=== PATIENT | female | born 1940 | race Native Hawaiian/Other Pacific Islander ===

== ENCOUNTER 2017-01-06 16:56 | Inpatient (IN) | payer OTHER ==
[~2017-01-06] VITALS: Ht 165.1 cm; Wt 120.7 kg
[2017-01-06 17:55] LABS: PLATELET COUNT 181 K/uL (152-353)
[2017-01-06 18:18] VITALS: BP 175/58; TEMP 98.4; Ht 165.1 cm; Wt 120.7 kg
[2017-01-06 18:25] LABS: POTASSIUM 3.9 mmol/L (3.6-5.2)
[2017-01-06] MEDS ORDERED: FURO40TA93 PO (18:42)
[2017-01-06] MEDS ORDERED: LISI5TAB10 PO (18:43)
[2017-01-06] MEDS ORDERED: LIPITOR10 MG PO (18:44)
[2017-01-06] MEDS ORDERED: METO25TA4 OR (18:46)
[2017-01-06 20:00] VITALS: BP 155/73; TEMP 97.8
[2017-01-07] VITALS: BP 127/55; TEMP 98
[2017-01-07 04:00] VITALS: BP 152/64; TEMP 97.9
[2017-01-07 04:20] LABS: PLATELET COUNT 143 K/uL (152-353)
[2017-01-07 04:51] LABS: POTASSIUM 4.2 mmol/L (3.6-5.2)
[2017-01-07 08:00] VITALS: BP 145/62; TEMP 97.8
[2017-01-07 12:00] VITALS: BP 125/56; TEMP 98
[2017-01-07 16:00] VITALS: BP 141/71; TEMP 97.8
[2017-01-07 20:28] VITALS: BP 148/58; TEMP 98.2
[2017-01-08] VITALS: BP 142/67; TEMP 98
[2017-01-08 04:00] VITALS: BP 118/51; TEMP 97.7
[2017-01-08 05:36] LABS: POTASSIUM 3.5 mmol/L (3.6-5.2)
[2017-01-08 06:03] LABS: PLATELET COUNT 139 K/uL (152-353)
[2017-01-08 08:00] VITALS: BP 147/64; TEMP 98.1
== END 2017-01-08 11:52 | disposition home or self-care (01) | DRG 603 ==
LOC: MED/SURG 16:56
PROVIDERS: ADMIT Family Medicine
DX: L03.116 Cellulitis of left lower limb (principal); L03.115 Cellulitis of right lower limb; E66.01 Morbid (severe) obesity due to excess calories; I12.9 Hypertensive chronic kidney disease with stage 1 through stage 4 chronic kidney disease, or unspecified chronic kidney disease; N18.3 Chronic kidney disease, stage 3 (moderate); R60.0 Localized edema; I89.0 Lymphedema, not elsewhere classified
CPT/HCPCS: 36415; 80053; 81000; 83735; 85027; 87070; 87077; 87186; 87205; J1940

== ENCOUNTER 2018-11-30 15:53 | Outpatient (CLI) | payer OTHER ==
[~2018-11-30 15:53] MED LIST: FURO40TA93 PO; LIPITOR10 MG PO; LISI5TAB10 PO; METO25TA4 OR
[2018-11-30 16:39] LABS: PLATELET COUNT 163 K/uL (152-353)
== END 2018-11-30 21:17 | disposition home or self-care (01) ==
LOC: LABW 15:53
PROVIDERS: Physician Assistant
DX: I21.3 ST elevation (STEMI) myocardial infarction of unspecified site (principal); E66.01 Morbid (severe) obesity due to excess calories; I77.89 Other specified disorders of arteries and arterioles; I10 Essential (primary) hypertension
CPT/HCPCS: 36415; 80053; 84443; 85027

== ENCOUNTER 2019-02-17 11:54 | Outpatient (CLI) | payer OTHER | END 2019-02-17 12:00 | disposition short-term general hospital (02) | LOC: AMB 11:54 | DX: M79.662 Pain in left lower leg (principal); R11.2 Nausea with vomiting, unspecified | CPT/HCPCS: A0425; A0427 ==

== ENCOUNTER 2019-02-17 12:05 | Emergency (ER) | payer OTHER ==
[~2019-02-17] VITALS: Ht 166.4 cm; Wt 113.4 kg
[2019-02-17 12:48] LABS: POTASSIUM 3.8 mmol/L (3.6-5.2)
[2019-02-17 13:09] LABS: PLATELET COUNT 141 K/uL (152-353)
[2019-02-17 15:05] VITALS: BP 143/65; TEMP 98.6
== END 2019-02-17 15:05 | disposition home or self-care (01) ==
LOC: ED 12:10
PROVIDERS: Emergency Medicine
DX: M79.18 Myalgia, other site (principal); M79.605 Pain in left leg
CPT/HCPCS: 80053; 85027; 85610; 85730; 96374; 96375; 99284; J1885; J2405

== ENCOUNTER 2019-02-25 09:31 | Outpatient (CLI) | payer OTHER | END 2019-02-25 22:16 | disposition home or self-care (01) | LOC: US 09:31 | DX: M79.89 Other specified soft tissue disorders (principal) ==

== ENCOUNTER 2019-03-04 11:40 | Emergency (ER) | payer OTHER ==
[~2019-03-04] VITALS: Ht 166.4 cm; Wt 113.4 kg
[2019-03-04 11:51] VITALS: TEMP 97.3
[2019-03-04 12:50] LABS: POTASSIUM 4.3 mmol/L (3.6-5.2)
[2019-03-04 12:58] LABS: PLATELET COUNT 359 K/uL (152-353)
[2019-03-04 17:06] VITALS: BP 141/65
== END 2019-03-04 17:44 | disposition short-term general hospital (02) ==
LOC: ED 11:40
PROVIDERS: Family Medicine
DX: I73.89 Other specified peripheral vascular diseases (principal); M79.662 Pain in left lower leg; M79.661 Pain in right lower leg; N28.9 Disorder of kidney and ureter, unspecified
CPT/HCPCS: 36415; 80053; 81000; 85027; 85610; 85730; 99284

== ENCOUNTER 2019-03-04 17:47 | Outpatient (CLI) | payer OTHER | END 2019-03-04 19:07 | disposition short-term general hospital (02) | LOC: AMB 17:47 | DX: M79.662 Pain in left lower leg (principal); R22.42 Localized swelling, mass and lump, left lower limb; E66.8 Other obesity | CPT/HCPCS: A0425; A0429 ==

== ENCOUNTER 2019-10-04 19:25 | Inpatient (IN) | payer OTHER ==
[~2019-10-04] VITALS: Ht 165.1 cm; Wt 112.3 kg
[2019-10-04 19:33] VITALS: BP 128/62; TEMP 98.7
[2019-10-04 20:13] LABS: PLATELET COUNT 90 K/uL (152-353)
[2019-10-04 20:19] LABS: POTASSIUM 4.7 mmol/L (3.6-5.2)
[2019-10-04 20:34] LABS: PARTIAL THROMBOPLASTIN TIME 27.9 SECONDS (24.5-33.6)
[2019-10-04 21:35] VITALS: BP 126/57
[2019-10-04 23:57] VITALS: BP 128/67; BP 145/68; TEMP 97.6; TEMP 98.9
[2019-10-05 02:27] VITALS: BP 145/68; TEMP 98.7; Ht 165.1 cm; Wt 112.3 kg
[2019-10-05 07:00] LABS: PLATELET COUNT 90 K/uL (152-353)
[2019-10-05 07:23] LABS: POTASSIUM 4.2 mmol/L (3.6-5.2)
[2019-10-05 08:00] VITALS: BP 140/50; TEMP 98.6
[2019-10-05] MEDS ORDERED: GABA100C2 PO (10:46)
[2019-10-05] MEDS ORDERED: NEURONTIN 100M100 MG PO (10:48)
[2019-10-05] MEDS ORDERED: XARELTO20 MG PO (10:50)
[2019-10-05] MEDS ORDERED: QMIIZ ODT15 MG PO (10:50)
[2019-10-05] MEDS ORDERED: POT CHLORIDE10 MEQ PO (10:52)
[2019-10-05 12:00] VITALS: BP 107/46; TEMP 99
[2019-10-05 16:00] VITALS: BP 122/35; TEMP 97.9
[2019-10-05 20:00] VITALS: BP 126/60; TEMP 98.1
[2019-10-05 23:52] VITALS: BP 148/56; TEMP 99.1
[2019-10-06 04:33] VITALS: BP 134/47; TEMP 98.1
[2019-10-06 05:11] LABS: PLATELET COUNT 96 K/uL (152-353)
[2019-10-06 05:15] LABS: POTASSIUM 4.3 mmol/L (3.6-5.2)
[2019-10-06 08:00] VITALS: BP 120/51; TEMP 97.8
[2019-10-06 12:00] VITALS: BP 108/71; TEMP 97.9
[2019-10-06 20:55] VITALS: BP 114/87; TEMP 98
[2019-10-07 00:02] VITALS: BP 107/62; TEMP 98.3
[2019-10-07 04:17] VITALS: BP 142/80; TEMP 99.1
[2019-10-07 04:35] LABS: PLATELET COUNT 100 K/uL (152-353); POTASSIUM 4.4 mmol/L (3.6-5.2)
[2019-10-07 08:00] VITALS: BP 133/49; TEMP 98.4
== END 2019-10-07 13:45 | disposition home or self-care (01) | DRG 300 ==
LOC: ED 19:25 → MED/SURG 21:30
PROVIDERS: Family Medicine; Internal Medicine Endocrinology, Diabetes & Metabolism; ADMIT Emergency Medicine Emergency Medical Services
DX: I82.492 Acute embolism and thrombosis of other specified deep vein of left lower extremity (principal); N17.9 Acute kidney failure, unspecified; I12.9 Hypertensive chronic kidney disease with stage 1 through stage 4 chronic kidney disease, or unspecified chronic kidney disease; N18.3 Chronic kidney disease, stage 3 (moderate); D69.6 Thrombocytopenia, unspecified; E78.49 Other hyperlipidemia; E66.01 Morbid (severe) obesity due to excess calories; G62.9 Polyneuropathy, unspecified
CPT/HCPCS: 36415; 80048; 80053; 81000; 82272; 83880; 85027; 85379; 85610; 85730; 87077; 87086; 87088; 87186; 96372; 96374; 99284; J1650; J1940

== ENCOUNTER 2019-12-01 09:16 | Outpatient (CLI) | payer OTHER ==
[~2019-12-01 09:16] MED LIST changes: +GABA100C2 PO; +NEURONTIN 100M100 MG PO; +POT CHLORIDE10 MEQ PO; +QMIIZ ODT15 MG PO; +XARELTO20 MG PO
[2019-12-01 09:52] LABS: PLATELET COUNT 156 K/uL (152-353)
== END 2019-12-01 21:44 | disposition home or self-care (01) ==
LOC: LABW 09:16
PROVIDERS: Internal Medicine
DX: Z03.89 Encounter for observation for other suspected diseases and conditions ruled out (principal); I10 Essential (primary) hypertension; I77.89 Other specified disorders of arteries and arterioles; Z79.899 Other long term (current) drug therapy
CPT/HCPCS: 36415; 80053; 80061; 81000; 84439; 84443; 85027

== ENCOUNTER 2019-12-07 11:41 | Outpatient (CLI) | payer OTHER ==
[2019-12-07 12:24] LABS: PLATELET COUNT 146 K/uL (152-353)
== END 2019-12-07 21:30 | disposition home or self-care (01) ==
LOC: LAB 11:41
PROVIDERS: Internal Medicine
DX: D64.89 Other specified anemias (principal); N18.3 Chronic kidney disease, stage 3 (moderate)
CPT/HCPCS: 80053; 85027

== ENCOUNTER 2020-10-10 12:10 | Outpatient (CLI) | payer OTHER ==
[2020-10-21 09:30] LABS: PLATELET COUNT 210 K/uL (152-353)
== END 2020-10-10 17:00 ==
LOC: LABW 12:10
PROVIDERS: ATTEND Internal Medicine
DX: D64.9 Anemia, unspecified (principal)
CPT/HCPCS: 82607; 82728; 82747; 83540; 83550; 85027

== ENCOUNTER 2020-10-25 13:13 | Outpatient (CLI) | payer OTHER ==
[2020-10-25 13:48] LABS: POTASSIUM 4.4 mmol/L (3.6-5.2)
== END 2020-10-25 19:48 | disposition home or self-care (01) ==
LOC: LABW 13:13
PROVIDERS: ATTEND Internal Medicine
DX: D64.9 Anemia, unspecified (principal)
CPT/HCPCS: 36415; 80048

== ENCOUNTER 2020-12-30 15:38 | Emergency (ER) | payer OTHER ==
[~2020-12-30] VITALS: Ht 165.1 cm; Wt 112.0 kg
[2020-12-30 15:44] VITALS: BP 132/42; TEMP 99.6
[2020-12-30 16:05] LABS: PLATELET COUNT 239 K/uL (152-353)
[2020-12-30 16:15] LABS: POTASSIUM 3.8 mmol/L (3.6-5.2); SODIUM 138 mmol/L (136-145)
[2020-12-30 16:34] LABS: PARTIAL THROMBOPLASTIN TIME 28.9 SECONDS (24.5-33.6)
--- NOTE | 2021-01-01 14:52 | NUR ---
01/01/21 pt referred to [facility] health per Dr. Wiseman/Dr. Orr for nursing, wound care, physical therapy ph [phone]/ fx [phone].
== END 2020-12-31 10:29 | disposition home or self-care (01) ==
LOC: ED 15:38
PROVIDERS: Hospitalist
DX: U07.1 COVID-19 (principal); J06.9 Acute upper respiratory infection, unspecified; R60.0 Localized edema; N18.9 Chronic kidney disease, unspecified; R35.0 Frequency of micturition
CPT/HCPCS: 36600; 80053; 81000; 82550; 82805; 83880; 84484; 85027; 85610; 85730; 87077; 87086; 87088; 87186; 93005; 96374; 96375; 99284; J1100; J1940

== ENCOUNTER 2021-03-26 09:22 | Outpatient (CLI) | payer OTHER ==
[~2021-03-26 09:22] MED LIST changes: +MELOXICAM7.5 MG PO; -METO25TA4 OR; +METO25TA4 PO; -QMIIZ ODT15 MG PO
[2021-03-26 09:49] LABS: PLATELET COUNT 292 K/uL (152-353)
[2021-03-26 10:12] LABS: POTASSIUM 4.1 mmol/L (3.6-5.2)
[2021-03-26] MEDS ORDERED: CIPRO500 MG PO (16:30)
== END 2021-03-26 18:57 | disposition home or self-care (01) ==
LOC: LAB 09:22
PROVIDERS: ATTEND Internal Medicine
DX: D64.89 Other specified anemias (principal); N18.4 Chronic kidney disease, stage 4 (severe); L89.613 Pressure ulcer of right heel, stage 3; Z79.899 Other long term (current) drug therapy
CPT/HCPCS: 80053; 80061; 81000; 84439; 84443; 85027; 87070; 87077; 87185; 87186; 87205

== ENCOUNTER 2021-03-26 12:14 | Observation (INO) | payer OTHER ==
[2021-03-26] VITALS (13 sets, daily range): BP systolic 92–139; BP diastolic 38–69; TEMP 97.3–98.9; Ht 165.1 cm; Wt 98.2 kg
[~2021-03-26] VITALS: Ht 165.1 cm; Wt 98.2 kg
[2021-03-26 12:41] LABS: PLATELET COUNT 332 K/uL (152-353)
[2021-03-26 12:55] LABS: PARTIAL THROMBOPLASTIN TIME 35.8 SECONDS (24.5-33.6)
[2021-03-26 12:57] LABS: POTASSIUM 4.1 mmol/L (3.6-5.2)
[2021-03-26] MEDS ORDERED: CIPRO500 MG PO (16:30)
[2021-03-27] VITALS (9 sets, daily range): BP systolic 89–119; BP diastolic 32–58; TEMP 97.8–98.6
[2021-03-27 12:28] LABS: PLATELET COUNT 287 K/uL (152-353)
[2021-03-27 12:54] LABS: POTASSIUM 4.3 mmol/L (3.6-5.2)
[2021-03-28] VITALS (7 sets, daily range): BP systolic 91–147; BP diastolic 33–61; TEMP 98–99.3
[2021-03-28 05:04] LABS: PLATELET COUNT 258 K/uL (152-353)
[2021-03-29 04:20] VITALS: BP 99/42; TEMP 97.9
[2021-03-29 04:54] LABS: PLATELET COUNT 267 K/uL (152-353)
[2021-03-29 05:05] LABS: POTASSIUM 4.4 mmol/L (3.6-5.2)
[2021-03-29 08:00] VITALS: BP 103/35; TEMP 98.6
[2021-03-29 12:00] VITALS: BP 120/36; TEMP 98.5
[2021-03-29 16:00] VITALS: BP 101/37; TEMP 98.6
[2021-03-29 20:00] VITALS: BP 114/48; TEMP 99
[2021-03-29 21:18] VITALS: BP 114/48; TEMP 99
[2021-03-30 00:05] VITALS: BP 118/51; TEMP 98.7
[2021-03-30 04:00] VITALS: BP 119/49; TEMP 97.5
[2021-03-30 05:21] LABS: PLATELET COUNT 287 K/uL (152-353)
[2021-03-30 05:29] LABS: POTASSIUM 3.7 mmol/L (3.6-5.2)
[2021-03-30 08:00] VITALS: BP 105/45; TEMP 98.6
[2021-03-30] MEDS ORDERED: FOLI1TAB26 PO (10:19)
[2021-03-30] MEDS ORDERED: COLL250O TOP (10:19)
[2021-03-30] MEDS ORDERED: LEVAQUIN 500MG TAB PO (10:20)
[2021-03-30] MEDS ORDERED: LEVAQUIN250 MG PO (10:22)
[2021-03-30] MEDS ORDERED: IRON325 MG PO (10:22)
[2021-03-30] MEDS ORDERED: DOCU100C10 PO (10:23)
== END 2021-03-30 13:25 | disposition home or self-care (01) ==
LOC: ED 12:14 → MED/SURG 13:50
PROVIDERS: Hospitalist; Internal Medicine; ADMIT Internal Medicine Endocrinology, Diabetes & Metabolism; ATTEND Internal Medicine Endocrinology, Diabetes & Metabolism
DX: D64.89 Other specified anemias (principal); R62.7 Adult failure to thrive; R53.1 Weakness; E78.49 Other hyperlipidemia; E66.8 Other obesity; K21.9 Gastro-esophageal reflux disease without esophagitis; I13.0 Hypertensive heart and chronic kidney disease with heart failure and stage 1 through stage 4 chronic kidney disease, or unspecified chronic kidney disease; I50.9 Heart failure, unspecified; N17.8 Other acute kidney failure; N18.4 Chronic kidney disease, stage 4 (severe); Z86.718 Personal history of other venous thrombosis and embolism; G62.89 Other specified polyneuropathies; L89.629 Pressure ulcer of left heel, unspecified stage; L89.619 Pressure ulcer of right heel, unspecified stage; L89.159 Pressure ulcer of sacral region, unspecified stage; L08.89 Other specified local infections of the skin and subcutaneous tissue; B95.62 Methicillin resistant Staphylococcus aureus infection as the cause of diseases classified elsewhere
CPT/HCPCS: 36415; 36430; 80048; 80053; 82550; 82728; 82746; 83540; 83550; 83880; 84484; 85027; 85610; 85730; 86850; 86900; 86901; 86922; 87635; 93005; 94760; 96360; 96365; 96366; 96367; 96375; 99220; 99284; G0378; J2916; J3490; P9016; U0003

== ENCOUNTER 2021-08-30 14:26 | Outpatient (CLI) | payer OTHER ==
[~2021-08-30 14:26] MED LIST changes: +CIPRO500 MG PO; +COLL250O TOP; +DOCU100C10 PO; +FOLI1TAB26 PO; +IRON325 MG PO; +LEVAQUIN 500MG TAB PO; +LEVAQUIN250 MG PO
== END 2021-08-30 20:49 | disposition home or self-care (01) ==
LOC: LAB 14:26
PROVIDERS: ATTEND Internal Medicine
DX: N32.89 Other specified disorders of bladder (principal); N39.0 Urinary tract infection, site not specified
CPT/HCPCS: 81000; 87077; 87086; 87088; 87186

== ENCOUNTER 2021-09-20 16:11 | Inpatient (IN) | payer OTHER ==
[~2021-09-20] VITALS: Ht 165.1 cm; Wt 87.7 kg
[2021-09-20 17:09] LABS: PLATELET COUNT 239 K/uL (152-353)
[2021-09-20 17:43] LABS: POTASSIUM 3.2 mmol/L (3.6-5.2)
[2021-09-20 18:45] VITALS: BP 164/63; TEMP 98.20; Ht 165.1 cm; Wt 87.7 kg
[2021-09-20 19:52] VITALS: BP 109/83; TEMP 98.7
[2021-09-21] MEDS ORDERED: LORATADINE10 MG PO (07:34)
[2021-09-21] MEDS ORDERED: POTASSIUM CHLO10 ME1 PO (07:36)
[2021-09-21] MEDS ORDERED: CLOPIDOGREL75 MG PO (07:37)
[2021-09-21] MEDS ORDERED: OXYB5TAB56 PO (07:38)
[2021-09-21] MEDS ORDERED: HYDROXYZINE HYD25 MG PO (07:42)
[2021-09-21] MEDS ORDERED: OXYCODONE/ACETA1 TA1 PO (07:43)
[2021-09-21 08:00] VITALS: BP 131/65; TEMP 99
[2021-09-21 19:46] VITALS: BP 125/49; TEMP 98.2
[2021-09-22 08:00] VITALS: BP 147/75; TEMP 98.3
[2021-09-22 19:47] VITALS: BP 110/62; TEMP 98.3
[2021-09-23 08:00] VITALS: BP 129/54; TEMP 97.5
[2021-09-23 20:00] VITALS: BP 136/61; TEMP 97.6
[2021-09-24 08:23] VITALS: BP 141/63; TEMP 98.6
[2021-09-24 20:00] VITALS: BP 137/74; TEMP 98.6
== END 2021-09-25 13:05 | disposition home health service (06) | DRG 293 ==
LOC: HOSPICE 16:11 → MED/SURG 16:13
PROVIDERS: ADMIT Internal Medicine; ATTEND Internal Medicine
DX: I11.0 Hypertensive heart disease with heart failure (principal)
CPT/HCPCS: 80053; 81000; 85027; 87077; 87086; 87088; 87186; 87635; U0003

== ENCOUNTER 2022-09-16 15:56 | Outpatient (CLI) | payer OTHER ==
[~2022-09-16 15:56] MED LIST changes: +CLOPIDOGREL75 MG PO; +HYDROXYZINE HYD25 MG PO; +LORATADINE10 MG PO; +OXYB5TAB56 PO; +OXYCODONE/ACETA1 TA1 PO; +POTASSIUM CHLO10 ME1 PO
[2022-09-16 16:06] LABS: PLATELET COUNT 135 K/uL (152-353)
[2022-09-16 16:26] LABS: POTASSIUM 3.4 mmol/L (3.6-5.2)
== END 2022-09-16 19:46 | disposition home or self-care (01) ==
LOC: LAB 15:56
PROVIDERS: ATTEND Internal Medicine
DX: I11.0 Hypertensive heart disease with heart failure (principal); I50.9 Heart failure, unspecified
CPT/HCPCS: 80053; 85027

== ENCOUNTER 2022-12-18 13:13 | Outpatient (CLI) | payer OTHER | END 2022-12-18 20:55 | disposition home or self-care (01) | LOC: LAB 13:13 | PROVIDERS: ATTEND Internal Medicine | DX: N39.0 Urinary tract infection, site not specified (principal) | CPT/HCPCS: 81002; 87088 ==